=== PATIENT | female | born 1960 | race Caucasian/White ===

== ENCOUNTER → 2017-05-06 | Outpatient (CLI) | payer MEDICAID | LOC: FIMAGING 13:22 | PROVIDERS: ATTEND Family Medicine | DX: M25.561 Pain in right knee (principal); M25.562 Pain in left knee ==

== ENCOUNTER → 2017-10-26 | Outpatient (CLI) | payer MEDICAID | LOC: FIMAGING 17:54 | PROVIDERS: ATTEND Family Medicine | DX: R05 Cough (principal); R06.2 Wheezing ==